=== PATIENT | male | born 1925 | race Caucasian/White ===

== ENCOUNTER 2016-10-19 14:00 | Inpatient (IN) | payer MEDICARE ==
[~2016-10-19] VITALS: Ht 175.3 cm; Wt 44.5 kg
[2016-10-19] MEDS ORDERED: SODIUM CHLORIDE FLUSH 10ML SYR IVF ONE (14:30)
[2016-10-19] MEDS ORDERED: SODIUM CHLORIDE 0.9% 1,000ML IVBOLUS ONE (14:30)
[2016-10-19] MEDS ORDERED: PLEASE ENTER ALLERGIES MC SCH ×2 (14:30)
[2016-10-19] MEDS ORDERED: ASPI-496 PO (14:39)
[2016-10-19] MEDS ORDERED: HYDROmorphone 1 MG/ML, 1ML ONE ×2 (15:45→15:47)
[2016-10-19 15:50] LABS: ASPARTATE AMINO TRANSFERASE 16 U/L (15-37); BLOOD UREA NITROGEN 15 mg/dL (7-18)
[2016-10-19] MEDS ORDERED: HYDROmorphone 1 MG/ML, 1ML IVPush PRN (16:00)
[2016-10-19] MEDS ORDERED: POLYETHYLENE GLYCOL 17 GM PACKET PO PRN (17:00)
[2016-10-19] MEDS ORDERED: ONDANSETRON 2MG/ML, 2ML IVPush PRN (17:00)
[2016-10-19] MEDS ORDERED: DOCUSATE 100 MG CAPSULE PO PRN (17:00)
[2016-10-19] MEDS ORDERED: BISACODYL 10 MG SUPP PR PRN (17:00)
[2016-10-19 19:00] VITALS: BP 103/55
[2016-10-19] MEDS: SODIUM CHLORIDE 0.9% 1,000 ML IV SCH (21:02)
[2016-10-19] MEDS: MEROPENEM 1 GM in SODIUM CHLORIDE 0.9% 50 ML IV SCH (21:03)
[2016-10-19] MEDS: MORPHINE SULFATE 4 MG/ML, 1ML IVPush PRN (21:03)
[2016-10-20 00:18] VITALS: BP 156/77
[2016-10-20 03:34] LABS: BLOOD UREA NITROGEN 18 mg/dL (7-18); TOTAL IRON BINDING CAPACITY 350 mcg/dL (250-450)
[2016-10-20] MEDS: SODIUM CHLORIDE 0.9% 1,000 ML IV SCH ×2 (05:30→15:30)
[2016-10-20 07:51] VITALS: BP 122/70
[2016-10-20] MEDS: MEROPENEM 1 GM in SODIUM CHLORIDE 0.9% 50 ML IV SCH ×2 (09:28→20:44)
[2016-10-20 20:25] VITALS: BP 117/60
[2016-10-20] MEDS: MORPHINE SULFATE 4 MG/ML, 1ML IVPush PRN (20:46)
[2016-10-21 02:47] VITALS: BP 125/67
[2016-10-21] MEDS: SODIUM CHLORIDE 0.9% 1,000 ML IV SCH ×2 (03:00→13:00)
[2016-10-21 05:21] LABS: BLOOD UREA NITROGEN 13 mg/dL (7-18)
[2016-10-21 08:14] VITALS: BP 141/73
[2016-10-21] MEDS: MORPHINE SULFATE 4 MG/ML, 1ML IVPush PRN (09:22)
[2016-10-21] MEDS: MEROPENEM 1 GM in SODIUM CHLORIDE 0.9% 50 ML IV SCH ×2 (09:40→21:43)
[2016-10-21 18:30] VITALS: BP 121/65
[2016-10-21 19:18] VITALS: BP 126/68
[2016-10-21] MEDS: D5%-0.45% NACL 1,000 ML IV SCH (21:43)
[2016-10-22 03:42] VITALS: BP 120/71
[2016-10-22 05:00] LABS: BLOOD UREA NITROGEN 12 mg/dL (7-18)
[2016-10-22 07:51] VITALS: BP 124/78
[2016-10-22] MEDS: MEROPENEM 1 GM in SODIUM CHLORIDE 0.9% 50 ML IV SCH (12:24)
[2016-10-22] MEDS: D5%-0.45% NACL 1,000 ML IV SCH (12:24)
[2016-10-22] MEDS: IRON SUCROSE COMPLEX 100MG/5ML IV SCH (12:25)
[2016-10-22 15:42] VITALS: BP 91/46
[2016-10-22 19:15] VITALS: BP 92/52
[2016-10-22] MEDS: MEROPENEM 1 GM in SODIUM CHLORIDE 0.9% 100 ML IV SCH (20:50)
[2016-10-23 01:42] VITALS: BP 101/56
[2016-10-23] MEDS: D5%-0.45% NACL 1,000 ML IV SCH ×2 (03:30→17:14)
[2016-10-23 07:45] VITALS: BP 109/65
[2016-10-23] MEDS: IRON SUCROSE COMPLEX 100MG/5ML IV SCH (08:48)
[2016-10-23] MEDS: MEROPENEM 1 GM in SODIUM CHLORIDE 0.9% 100 ML IV SCH ×2 (08:48→20:03)
[2016-10-23] MEDS: MORPHINE SULFATE 4 MG/ML, 1ML IVPush PRN ×2 (09:09→20:03)
[2016-10-23 13:17] VITALS: BP 103/61
[2016-10-23 14:00] VITALS: BP 136/80
[2016-10-23 20:16] VITALS: BP 93/50
[2016-10-24 01:40] VITALS: BP 123/65
[2016-10-24 06:28] LABS: BLOOD UREA NITROGEN 19 mg/dL (7-18)
[2016-10-24 07:39] VITALS: BP 133/67
[2016-10-24] MEDS: IRON SUCROSE COMPLEX 100MG/5ML IV SCH (08:25)
[2016-10-24] MEDS: MORPHINE SULFATE 4 MG/ML, 1ML IVPush PRN ×2 (08:25→23:36)
[2016-10-24] MEDS: D5%-0.45% NACL 1,000 ML IV SCH ×2 (08:26→21:59)
[2016-10-24] MEDS: MEROPENEM 1 GM in SODIUM CHLORIDE 0.9% 100 ML IV SCH ×2 (09:12→22:03)
[2016-10-24 14:00] VITALS: BP 138/73
[2016-10-24 20:30] VITALS: BP 106/56
[2016-10-25 03:04] VITALS: BP 131/68
[2016-10-25 08:11] VITALS: BP 107/58
[2016-10-25] MEDS: IRON SUCROSE COMPLEX 100MG/5ML IV SCH (08:51)
[2016-10-25] MEDS: MEROPENEM 1 GM in SODIUM CHLORIDE 0.9% 100 ML IV SCH ×2 (08:51→21:01)
[2016-10-25] MEDS: D5%-0.45% NACL 1,000 ML IV SCH (10:20)
[2016-10-25 13:50] VITALS: BP 111/67
[2016-10-25 13:57] VITALS: BP 126/64
[2016-10-25 20:35] VITALS: BP 104/53
[2016-10-26] MEDS: D5%-0.45% NACL 1,000 ML IV SCH (00:38)
[2016-10-26 02:00] VITALS: BP 141/71
[2016-10-26 06:10] VITALS: BP 134/64
[2016-10-26 07:47] VITALS: BP 113/62
[2016-10-26] MEDS: IRON SUCROSE COMPLEX 100MG/5ML IV SCH (10:24)
[2016-10-26] MEDS: MEROPENEM 1 GM in SODIUM CHLORIDE 0.9% 100 ML IV SCH ×2 (10:31→21:47)
[2016-10-26] MEDS: OXYcodone IR 5MG TABLET PO SCH ×2 (12:39→21:47)
[2016-10-26 14:42] VITALS: BP 92/47
[2016-10-26 19:50] VITALS: BP 105/57
[2016-10-27 02:05] VITALS: BP 135/62
[2016-10-27] MEDS: D5%-0.45% NACL 1,000 ML IV SCH (03:23)
[2016-10-27] MEDS: OXYcodone IR 5MG TABLET PO SCH ×2 (08:20→21:00)
[2016-10-27] MEDS: MEROPENEM 1 GM in SODIUM CHLORIDE 0.9% 100 ML IV SCH ×2 (10:40→21:10)
[2016-10-27 12:31] VITALS: BP 116/65
[2016-10-27 14:01] VITALS: BP 119/64
[2016-10-27] MEDS: HEPARIN 5,000 UNITS/ML, 1ML SQ SCH ×3 (14:30→21:09)
[2016-10-27] MEDS: MORPHINE SULFATE 4 MG/ML, 1ML IVPush PRN (15:24)
[2016-10-27 19:09] VITALS: BP 120/65
[2016-10-27] MEDS: ACETAMINOPHEN 325 MG TABLET PO PRN (19:12)
[2016-10-28 01:42] VITALS: BP 134/69
[2016-10-28] MEDS: HEPARIN 5,000 UNITS/ML, 1ML SQ SCH ×2 (04:00→22:30)
[2016-10-28 04:59] LABS: BLOOD UREA NITROGEN 15 mg/dL (7-18)
[2016-10-29] MEDS: HEPARIN 5,000 UNITS/ML, 1ML SQ SCH ×3 (06:30→21:58)
[2016-10-29] MEDS: OXYcodone IR 5MG TABLET PO SCH ×3 (09:00→22:06)
[2016-10-29] MEDS: MEROPENEM 1 GM in SODIUM CHLORIDE 0.9% 100 ML IV SCH ×3 (10:00→22:06)
[2016-10-29 15:21] VITALS: BP 123/65
[2016-10-29 19:14] VITALS: BP 127/72
[2016-10-30 01:50] VITALS: BP 134/76
[2016-10-30] MEDS: HEPARIN 5,000 UNITS/ML, 1ML SQ SCH ×3 (06:26→21:53)
[2016-10-30 08:45] VITALS: BP 99/54
[2016-10-30] MEDS: OXYcodone IR 5MG TABLET PO SCH ×2 (09:00→22:28)
[2016-10-30 09:46] LABS: ASPARTATE AMINO TRANSFERASE 19 U/L (15-37); BLOOD UREA NITROGEN 21 mg/dL (7-18)
[2016-10-30 12:45] VITALS: BP 99/60
[2016-10-30] MEDS: MEROPENEM 1 GM in SODIUM CHLORIDE 0.9% 100 ML IV SCH ×2 (14:53→22:29)
[2016-10-30] MEDS: MORPHINE SULFATE 4 MG/ML, 1ML IVPush PRN (22:28)
[2016-10-31 03:01] VITALS: BP 105/59
[2016-10-31] MEDS: HEPARIN 5,000 UNITS/ML, 1ML SQ SCH ×3 (05:42→21:36)
[2016-10-31 09:00] VITALS: BP 100/59
[2016-10-31] MEDS: OXYcodone IR 5MG TABLET PO SCH ×2 (09:02→21:36)
[2016-10-31] MEDS: MEROPENEM 1 GM in SODIUM CHLORIDE 0.9% 100 ML IV SCH ×2 (12:26→21:36)
[2016-10-31 13:40] VITALS: BP 97/56
[2016-10-31 20:06] VITALS: BP 141/64
[2016-11-01] MEDS: MORPHINE SULFATE 4 MG/ML, 1ML IVPush PRN ×2 (00:12→04:01)
[2016-11-01 01:27] VITALS: BP 99/60
[2016-11-01 07:25] VITALS: BP 99/51
[2016-11-01] MEDS: HEPARIN 5,000 UNITS/ML, 1ML SQ SCH ×4 (08:03→22:52)
[2016-11-01] MEDS: OXYcodone IR 5MG TABLET PO SCH ×2 (08:03→20:22)
[2016-11-01] MEDS: MEROPENEM 1 GM in SODIUM CHLORIDE 0.9% 100 ML IV SCH ×2 (09:47→22:45)
[2016-11-01 12:25] VITALS: BP 99/62
[2016-11-01 20:28] VITALS: BP 119/52
[2016-11-02 01:54] VITALS: BP 112/58
[2016-11-02 07:02] VITALS: BP 100/53
[2016-11-02] MEDS: MEROPENEM 1 GM in SODIUM CHLORIDE 0.9% 100 ML IV SCH ×2 (09:21→20:40)
[2016-11-02] MEDS: OXYcodone IR 5MG TABLET PO SCH ×2 (09:21→20:40)
[2016-11-02 13:45] VITALS: BP 117/65
[2016-11-02] MEDS: HEPARIN 5,000 UNITS/ML, 1ML SQ SCH ×2 (17:08→20:41)
[2016-11-02 18:57] VITALS: BP 96/54
[2016-11-02] MEDS ORDERED: BISACODYL 10 MG SUPP PR PRN (21:30)
[2016-11-02] MEDS ORDERED: POLYETHYLENE GLYCOL 17 GM PACKET PO PRN (21:30)
[2016-11-02] MEDS ORDERED: ONDANSETRON 2MG/ML, 2ML IVPush PRN (21:30)
[2016-11-03 01:14] VITALS: BP 107/59
[2016-11-03] MEDS: HEPARIN 5,000 UNITS/ML, 1ML SQ SCH ×3 (05:51→21:10)
[2016-11-03 07:36] VITALS: BP 109/58
[2016-11-03] MEDS: OXYcodone IR 5MG TABLET PO SCH ×2 (08:41→21:00)
[2016-11-03] MEDS: MEROPENEM 1 GM in SODIUM CHLORIDE 0.9% 100 ML IV SCH (08:41)
[2016-11-03 13:37] VITALS: BP 105/53
[2016-11-03 19:20] VITALS: BP 111/61
[2016-11-03] MEDS: AMOXICILLIN/CLAV 875-125MG TABLET PO SCH (21:00)
[2016-11-04 01:22] VITALS: BP 116/55
[2016-11-04] MEDS: HEPARIN 5,000 UNITS/ML, 1ML SQ SCH ×3 (05:27→22:30)
[2016-11-04 06:09] LABS: BLOOD UREA NITROGEN 21 mg/dL (7-18)
[2016-11-04 06:56] VITALS: BP_SYST 101; BP_SYST 96; BP_DIAS 50; BP_DIAS 55
[2016-11-04] MEDS: AMOXICILLIN/CLAV 875-125MG TABLET PO SCH ×2 (08:55→20:53)
[2016-11-04] MEDS: OXYcodone IR 5MG TABLET PO SCH ×2 (08:55→20:55)
[2016-11-04] MEDS ORDERED: OXYC5TAB3 PO (13:17)
[2016-11-04] MEDS ORDERED: AMOX1TAB12 PO (13:17)
[2016-11-04 13:39] VITALS: BP 107/56
[2016-11-04 20:00] VITALS: BP 112/72
[2016-11-04 20:27] VITALS: BP 106/60
[2016-11-05 01:39] VITALS: BP 111/62
[2016-11-05] MEDS: HEPARIN 5,000 UNITS/ML, 1ML SQ SCH ×3 (06:30→22:30)
[2016-11-05] MEDS: OXYcodone IR 5MG TABLET PO SCH ×4 (09:00→23:23)
[2016-11-05] MEDS: AMOXICILLIN/CLAV 875-125MG TABLET PO SCH ×3 (09:00→20:05)
[2016-11-05 09:30] VITALS: BP 100/64
[2016-11-05 13:19] VITALS: BP 106/56
[2016-11-05 20:04] VITALS: BP 105/60
[2016-11-06 02:18] VITALS: BP 108/60
[2016-11-06] MEDS: HEPARIN 5,000 UNITS/ML, 1ML SQ SCH ×4 (06:30→21:44)
[2016-11-06 08:17] VITALS: BP 137/71
[2016-11-06] MEDS: AMOXICILLIN/CLAV 875-125MG TABLET PO SCH ×2 (10:54→21:34)
[2016-11-06 13:35] VITALS: BP 121/66
[2016-11-06 19:45] VITALS: BP 93/54
[2016-11-06] MEDS: OXYcodone IR 5MG TABLET PO SCH (21:34)
[2016-11-07 01:47] VITALS: BP 100/56
[2016-11-07] MEDS: HEPARIN 5,000 UNITS/ML, 1ML SQ SCH ×3 (05:57→21:25)
[2016-11-07 06:47] VITALS: BP 97/55
[2016-11-07] MEDS: OXYcodone IR 5MG TABLET PO SCH ×2 (09:00→19:52)
[2016-11-07] MEDS: AMOXICILLIN/CLAV 875-125MG TABLET PO SCH ×2 (10:18→20:33)
[2016-11-07 13:55] VITALS: BP 125/74
[2016-11-07 20:23] VITALS: BP 107/57
[2016-11-08 02:50] VITALS: BP 120/61
[2016-11-08] MEDS: HEPARIN 5,000 UNITS/ML, 1ML SQ SCH ×3 (05:35→21:57)
[2016-11-08 07:44] VITALS: BP 123/67
[2016-11-08] MEDS: AMOXICILLIN/CLAV 875-125MG TABLET PO SCH ×2 (10:15→20:28)
[2016-11-08] MEDS: OXYcodone IR 5MG TABLET PO SCH ×2 (10:15→20:28)
[2016-11-08 13:29] VITALS: BP 102/56
[2016-11-08 19:32] VITALS: BP 107/58
[2016-11-09 01:51] VITALS: BP 130/69
[2016-11-09] MEDS: HEPARIN 5,000 UNITS/ML, 1ML SQ SCH ×3 (05:43→22:26)
[2016-11-09 08:00] VITALS: BP 133/73
[2016-11-09] MEDS: AMOXICILLIN/CLAV 875-125MG TABLET PO SCH ×2 (11:13→22:44)
[2016-11-09] MEDS: OXYcodone IR 5MG TABLET PO SCH ×2 (11:13→22:44)
[2016-11-09 14:35] VITALS: BP 111/58
[2016-11-09 20:59] VITALS: BP 130/82
[2016-11-10 02:47] VITALS: BP 110/65
[2016-11-10 05:32] LABS: BLOOD UREA NITROGEN 18 mg/dL (7-18)
[2016-11-10] MEDS: HEPARIN 5,000 UNITS/ML, 1ML SQ SCH ×3 (06:24→22:30)
[2016-11-10 06:36] VITALS: BP 96/55
[2016-11-10 07:11] VITALS: BP 92/53
[2016-11-10] MEDS: OXYcodone IR 5MG TABLET PO SCH ×2 (10:23→20:56)
[2016-11-10] MEDS: AMOXICILLIN/CLAV 875-125MG TABLET PO SCH ×2 (10:23→20:56)
[2016-11-10 15:15] VITALS: BP 109/61
[2016-11-10 19:47] VITALS: BP 110/63
[2016-11-11 01:28] VITALS: BP 123/68
[2016-11-11] MEDS: HEPARIN 5,000 UNITS/ML, 1ML SQ SCH ×3 (05:31→22:30)
[2016-11-11 06:36] VITALS: BP 95/53
[2016-11-11] MEDS: OXYcodone IR 5MG TABLET PO SCH ×2 (08:44→20:13)
[2016-11-11] MEDS: AMOXICILLIN/CLAV 875-125MG TABLET PO SCH ×2 (08:44→20:13)
[2016-11-11 13:35] VITALS: BP 121/66
[2016-11-11 19:42] VITALS: BP 91/57
[2016-11-12] MEDS: HEPARIN 5,000 UNITS/ML, 1ML SQ SCH ×3 (06:09→22:30)
[2016-11-12 08:35] VITALS: BP 94/51
[2016-11-12] MEDS: AMOXICILLIN/CLAV 875-125MG TABLET PO SCH ×2 (08:53→22:08)
[2016-11-12] MEDS: OXYcodone IR 5MG TABLET PO SCH ×2 (08:53→22:08)
[2016-11-12 14:40] VITALS: BP 119/62
[2016-11-12] MEDS: LACTOBACILLUS 1GM/ PACKET PO SCH ×2 (14:51→22:08)
[2016-11-12] MEDS: ACETAMINOPHEN 325 MG TABLET PO PRN (15:08)
[2016-11-12 19:54] VITALS: BP 111/58
[2016-11-13 01:39] VITALS: BP 107/53
[2016-11-13 07:31] VITALS: BP 97/55
[2016-11-13] MEDS: AMOXICILLIN/CLAV 875-125MG TABLET PO SCH ×2 (08:16→20:18)
[2016-11-13] MEDS: LACTOBACILLUS 1GM/ PACKET PO SCH ×3 (08:16→20:18)
[2016-11-13] MEDS: OXYcodone IR 5MG TABLET PO SCH ×2 (08:18→20:18)
[2016-11-13] MEDS: HEPARIN 5,000 UNITS/ML, 1ML SQ SCH ×3 (08:20→22:30)
[2016-11-13 13:46] VITALS: BP 95/51
[2016-11-13 19:12] VITALS: BP 102/56
[2016-11-14 02:50] VITALS: BP 135/73
[2016-11-14] MEDS: HEPARIN 5,000 UNITS/ML, 1ML SQ SCH ×3 (06:30→22:30)
[2016-11-14] MEDS: AMOXICILLIN/CLAV 875-125MG TABLET PO SCH ×2 (08:54→21:49)
[2016-11-14] MEDS: OXYcodone IR 5MG TABLET PO SCH ×2 (08:54→21:50)
[2016-11-14] MEDS: LACTOBACILLUS 1GM/ PACKET PO SCH ×3 (08:54→21:49)
[2016-11-14 09:00] VITALS: BP 103/58
[2016-11-14 13:23] VITALS: BP 95/51
[2016-11-14 20:49] VITALS: BP 106/53
[2016-11-15 02:51] VITALS: BP 107/64
[2016-11-15] MEDS: HEPARIN 5,000 UNITS/ML, 1ML SQ SCH ×3 (06:01→22:30)
[2016-11-15 06:43] VITALS: BP 111/61
[2016-11-15] MEDS: OXYcodone IR 5MG TABLET PO SCH ×2 (08:57→21:40)
[2016-11-15] MEDS: LACTOBACILLUS 1GM/ PACKET PO SCH ×3 (08:57→21:40)
[2016-11-15] MEDS: AMOXICILLIN/CLAV 875-125MG TABLET PO SCH ×2 (08:57→21:40)
[2016-11-15 15:44] VITALS: BP 105/88
[2016-11-15 22:13] VITALS: BP 120/70
[2016-11-16 03:09] VITALS: BP 102/60
[2016-11-16 05:09] LABS: BLOOD UREA NITROGEN 21 mg/dL (7-18)
[2016-11-16] MEDS: HEPARIN 5,000 UNITS/ML, 1ML SQ SCH ×3 (06:33→20:30)
[2016-11-16] MEDS: LACTOBACILLUS 1GM/ PACKET PO SCH ×3 (09:00→20:29)
[2016-11-16 10:07] VITALS: BP 105/54
[2016-11-16] MEDS: OXYcodone IR 5MG TABLET PO SCH ×2 (10:15→20:29)
[2016-11-16] MEDS: AMOXICILLIN/CLAV 875-125MG TABLET PO SCH ×2 (10:15→20:29)
[2016-11-16 12:58] VITALS: BP 133/68
[2016-11-16 20:28] VITALS: BP 121/85
[2016-11-16 21:44] VITALS: BP 145/71
[2016-11-16] MEDS ORDERED: ONDANSETRON ODT 4 MG ONE (21:57)
[2016-11-17 03:31] VITALS: BP 116/65
[2016-11-17] MEDS: HEPARIN 5,000 UNITS/ML, 1ML SQ SCH ×3 (05:43→22:30)
[2016-11-17 08:56] VITALS: BP 110/69
[2016-11-17] MEDS: AMOXICILLIN/CLAV 875-125MG TABLET PO SCH ×2 (09:00→21:00)
[2016-11-17] MEDS: LACTOBACILLUS 1GM/ PACKET PO SCH ×3 (09:00→21:00)
[2016-11-17] MEDS: OXYcodone IR 5MG TABLET PO SCH ×2 (09:00→21:00)
[2016-11-17 14:13] VITALS: BP 163/83
[2016-11-17 20:10] VITALS: BP 145/69
[2016-11-18 02:48] VITALS: BP 146/74
[2016-11-18] MEDS: HEPARIN 5,000 UNITS/ML, 1ML SQ SCH ×3 (04:34→22:32)
[2016-11-18 08:25] VITALS: BP 122/58
[2016-11-18] MEDS: LACTOBACILLUS 1GM/ PACKET PO SCH ×3 (09:00→19:44)
[2016-11-18] MEDS: AMOXICILLIN/CLAV 875-125MG TABLET PO SCH ×2 (09:00→19:44)
[2016-11-18] MEDS: OXYcodone IR 5MG TABLET PO SCH ×2 (09:00→19:44)
[2016-11-18 14:06] VITALS: BP 128/66
[2016-11-18 20:23] VITALS: BP 120/67
[2016-11-19 01:23] VITALS: BP 129/70
[2016-11-19] MEDS: HEPARIN 5,000 UNITS/ML, 1ML SQ SCH ×3 (03:04→21:34)
[2016-11-19] MEDS: OXYcodone IR 5MG TABLET PO SCH ×2 (08:51→20:02)
[2016-11-19] MEDS: AMOXICILLIN/CLAV 875-125MG TABLET PO SCH ×2 (08:51→20:01)
[2016-11-19] MEDS: LACTOBACILLUS 1GM/ PACKET PO SCH ×3 (08:51→20:02)
[2016-11-19 13:44] VITALS: BP 124/66
[2016-11-19 19:47] VITALS: BP 137/66
[2016-11-20 01:44] VITALS: BP 130/65
[2016-11-20] MEDS: HEPARIN 5,000 UNITS/ML, 1ML SQ SCH ×3 (05:52→22:11)
[2016-11-20 07:34] VITALS: BP 124/62
[2016-11-20] MEDS: AMOXICILLIN/CLAV 875-125MG TABLET PO SCH ×2 (08:34→20:26)
[2016-11-20] MEDS: LACTOBACILLUS 1GM/ PACKET PO SCH ×3 (08:34→20:27)
[2016-11-20] MEDS: OXYcodone IR 5MG TABLET PO SCH ×2 (08:35→20:26)
[2016-11-20 13:46] VITALS: BP 108/64
[2016-11-20 20:08] VITALS: BP 127/66
[2016-11-21 01:11] VITALS: BP 121/66
[2016-11-21] MEDS: HEPARIN 5,000 UNITS/ML, 1ML SQ SCH ×3 (05:26→21:21)
[2016-11-21 08:02] VITALS: BP 130/66
[2016-11-21] MEDS: OXYcodone IR 5MG TABLET PO SCH ×2 (08:26→19:42)
[2016-11-21] MEDS: LACTOBACILLUS 1GM/ PACKET PO SCH ×3 (08:26→19:42)
[2016-11-21] MEDS: AMOXICILLIN/CLAV 875-125MG TABLET PO SCH ×2 (08:26→19:41)
[2016-11-21 12:50] VITALS: BP 132/75
[2016-11-21 19:55] VITALS: BP 106/60
[2016-11-22 01:50] VITALS: BP 116/69
[2016-11-22] MEDS: HEPARIN 5,000 UNITS/ML, 1ML SQ SCH ×3 (05:39→20:33)
[2016-11-22 07:53] VITALS: BP 141/79
[2016-11-22] MEDS: LACTOBACILLUS 1GM/ PACKET PO SCH ×4 (09:00→20:33)
[2016-11-22] MEDS: AMOXICILLIN/CLAV 875-125MG TABLET PO SCH ×3 (09:00→20:33)
[2016-11-22] MEDS: OXYcodone IR 5MG TABLET PO SCH ×3 (11:55→20:32)
[2016-11-22 12:53] VITALS: BP 106/56
[2016-11-22 20:07] VITALS: BP 127/68
[2016-11-23 01:16] VITALS: BP 119/66
[2016-11-23] MEDS: HEPARIN 5,000 UNITS/ML, 1ML SQ SCH ×3 (05:21→22:30)
[2016-11-23 07:16] VITALS: BP 133/72
[2016-11-23] MEDS: AMOXICILLIN/CLAV 875-125MG TABLET PO SCH ×2 (09:00→21:00)
[2016-11-23] MEDS: LACTOBACILLUS 1GM/ PACKET PO SCH ×3 (09:00→21:00)
[2016-11-23] MEDS: OXYcodone IR 5MG TABLET PO SCH ×2 (09:00→21:00)
[2016-11-23 14:29] VITALS: BP 120/66
[2016-11-23 18:41] VITALS: BP 147/74
[2016-11-24 00:45] VITALS: BP 127/68
[2016-11-24 04:44] LABS: BLOOD UREA NITROGEN 24 mg/dL (7-18)
[2016-11-24 04:47] LABS: ASPARTATE AMINO TRANSFERASE 15 U/L (15-37)
[2016-11-24] MEDS: HEPARIN 5,000 UNITS/ML, 1ML SQ SCH ×3 (05:10→22:30)
[2016-11-24] MEDS: OXYcodone IR 5MG TABLET PO SCH ×2 (09:00→21:00)
[2016-11-24] MEDS: AMOXICILLIN/CLAV 875-125MG TABLET PO SCH ×2 (09:00→21:00)
[2016-11-24] MEDS: LACTOBACILLUS 1GM/ PACKET PO SCH ×3 (09:00→21:00)
[2016-11-24 09:02] VITALS: BP 118/67
[2016-11-24 13:47] VITALS: BP 126/64
[2016-11-24 20:09] VITALS: BP 113/64
[2016-11-25 02:01] VITALS: BP 129/71
[2016-11-25 05:01] LABS: BLOOD UREA NITROGEN 21 mg/dL (7-18)
[2016-11-25] MEDS: HEPARIN 5,000 UNITS/ML, 1ML SQ SCH ×3 (06:30→22:30)
[2016-11-25 07:12] VITALS: BP 131/79
[2016-11-25] MEDS: AMOXICILLIN/CLAV 875-125MG TABLET PO SCH ×2 (09:00→19:55)
[2016-11-25] MEDS: OXYcodone IR 5MG TABLET PO SCH ×2 (09:00→19:55)
[2016-11-25] MEDS: LACTOBACILLUS 1GM/ PACKET PO SCH ×3 (09:00→19:55)
[2016-11-25 15:56] VITALS: BP 123/63
[2016-11-25 18:58] VITALS: BP 124/69
[2016-11-26 00:59] VITALS: BP 116/69
[2016-11-26] MEDS: HEPARIN 5,000 UNITS/ML, 1ML SQ SCH ×3 (05:49→21:37)
[2016-11-26 07:01] VITALS: BP 120/65
[2016-11-26] MEDS: AMOXICILLIN/CLAV 875-125MG TABLET PO SCH ×3 (08:24→20:08)
[2016-11-26] MEDS: OXYcodone IR 5MG TABLET PO SCH ×2 (08:24→19:58)
[2016-11-26] MEDS: LACTOBACILLUS 1GM/ PACKET PO SCH ×3 (08:24→19:58)
[2016-11-26 13:37] VITALS: BP 117/72
[2016-11-26 20:04] VITALS: BP 108/64
[2016-11-27 01:10] VITALS: BP 101/60
[2016-11-27] MEDS: HEPARIN 5,000 UNITS/ML, 1ML SQ SCH ×3 (05:24→19:37)
[2016-11-27 07:41] VITALS: BP 119/65
[2016-11-27] MEDS: OXYcodone IR 5MG TABLET PO SCH ×3 (09:00→19:36)
[2016-11-27] MEDS: LACTOBACILLUS 1GM/ PACKET PO SCH ×4 (09:00→19:36)
[2016-11-27] MEDS: AMOXICILLIN/CLAV 875-125MG TABLET PO SCH ×2 (10:12→19:36)
[2016-11-27 13:38] VITALS: BP 110/74
[2016-11-27 19:31] VITALS: BP 103/52
[2016-11-28 04:20] VITALS: BP 127/69
[2016-11-28 08:32] VITALS: BP 110/65
[2016-11-28] MEDS: OXYcodone IR 5MG TABLET PO SCH ×2 (10:17→21:00)
[2016-11-28] MEDS: AMOXICILLIN/CLAV 875-125MG TABLET PO SCH ×2 (10:17→21:00)
[2016-11-28] MEDS: LACTOBACILLUS 1GM/ PACKET PO SCH ×3 (10:17→21:00)
[2016-11-28] MEDS: HEPARIN 5,000 UNITS/ML, 1ML SQ SCH ×2 (14:30→22:20)
[2016-11-28 14:40] VITALS: BP 117/67
[2016-11-28 20:51] VITALS: BP 116/61
[2016-11-29 01:38] VITALS: BP 111/57
[2016-11-29] MEDS: HEPARIN 5,000 UNITS/ML, 1ML SQ SCH ×3 (05:21→22:30)
[2016-11-29 08:30] VITALS: BP 117/59
[2016-11-29] MEDS: LACTOBACILLUS 1GM/ PACKET PO SCH ×3 (09:00→21:00)
[2016-11-29] MEDS: AMOXICILLIN/CLAV 875-125MG TABLET PO SCH ×2 (09:00→21:00)
[2016-11-29] MEDS: OXYcodone IR 5MG TABLET PO SCH ×2 (09:00→21:00)
[2016-11-29 14:30] VITALS: BP 127/78
[2016-11-29 18:45] VITALS: BP 119/69
[2016-11-30 02:36] VITALS: BP 127/56
[2016-11-30 07:10] VITALS: BP 149/72
[2016-11-30 08:04] VITALS: BP 146/80
[2016-11-30] MEDS: AMOXICILLIN/CLAV 875-125MG TABLET PO SCH ×2 (08:20→21:00)
[2016-11-30] MEDS: LACTOBACILLUS 1GM/ PACKET PO SCH ×3 (08:22→21:00)
[2016-11-30] MEDS: OXYcodone IR 5MG TABLET PO SCH ×3 (09:12→21:00)
[2016-11-30 12:49] VITALS: BP 115/68
[2016-11-30] MEDS: HEPARIN 5,000 UNITS/ML, 1ML SQ SCH ×3 (14:30→22:30)
[2016-11-30 20:56] VITALS: BP 98/52
[2016-11-30] MEDS ORDERED: OXYcodone IR 5MG TABLET PO SCH (21:00)
[2016-12-01 02:55] VITALS: BP 111/57
[2016-12-01 05:34] LABS: BLOOD UREA NITROGEN 20 mg/dL (7-18)
[2016-12-01] MEDS: AMOXICILLIN/CLAV 875-125MG TABLET PO SCH ×3 (05:53→21:00)
[2016-12-01] MEDS: HEPARIN 5,000 UNITS/ML, 1ML SQ SCH ×3 (05:53→22:30)
[2016-12-01] MEDS: LACTOBACILLUS 1GM/ PACKET PO SCH ×3 (09:00→21:00)
[2016-12-01] MEDS: OXYcodone IR 5MG TABLET PO SCH ×2 (09:00→21:00)
[2016-12-01 13:59] VITALS: BP 127/69
[2016-12-01 19:29] VITALS: BP 107/65
[2016-12-01] MEDS ORDERED: ONDANSETRON 2MG/ML, 2ML IVPush PRN (19:30)
[2016-12-01] MEDS ORDERED: BISACODYL 10 MG SUPP PR PRN (19:30)
[2016-12-01] MEDS ORDERED: DOCUSATE 100 MG CAPSULE PO PRN (19:30)
[2016-12-01] MEDS ORDERED: ACETAMINOPHEN 325 MG TABLET PO PRN (19:30)
[2016-12-01 23:04] VITALS: BP 119/76
[2016-12-02 03:02] VITALS: BP 111/60
[2016-12-02] MEDS: HEPARIN 5,000 UNITS/ML, 1ML SQ SCH ×3 (06:16→19:45)
[2016-12-02 07:40] VITALS: BP 104/60
[2016-12-02] MEDS: AMOXICILLIN/CLAV 875-125MG TABLET PO SCH ×3 (11:44→21:40)
[2016-12-02] MEDS: LACTOBACILLUS 1GM/ PACKET PO SCH ×3 (11:45→21:00)
[2016-12-02] MEDS: OXYcodone IR 5MG TABLET PO SCH ×2 (11:47→21:40)
[2016-12-02 14:34] VITALS: BP 105/61
[2016-12-02 18:48] VITALS: BP 104/61
[2016-12-03 01:05] VITALS: BP 99/59
[2016-12-03] MEDS: HEPARIN 5,000 UNITS/ML, 1ML SQ SCH ×3 (03:45→19:45)
[2016-12-03 07:58] VITALS: BP 121/66
[2016-12-03] MEDS: LACTOBACILLUS 1GM/ PACKET PO SCH ×3 (10:09→19:58)
[2016-12-03] MEDS: AMOXICILLIN/CLAV 875-125MG TABLET PO SCH ×2 (10:09→19:57)
[2016-12-03] MEDS: OXYcodone IR 5MG TABLET PO SCH ×2 (10:13→19:56)
[2016-12-03 15:02] VITALS: BP 117/61
[2016-12-03 19:32] VITALS: BP 108/60
[2016-12-04 01:27] VITALS: BP 110/64
[2016-12-04] MEDS: HEPARIN 5,000 UNITS/ML, 1ML SQ SCH (03:45)
[2016-12-04 06:38] VITALS: BP 116/68
== END 2016-12-04 07:15 | disposition home or self-care (01) | DRG 871 ==
LOC: ED 16:17 → SUATTDRO 16:21 → EDIP 16:36 → 3NW 18:11
PROVIDERS: ATTEND Family Medicine
DX: A41.9 Sepsis, unspecified organism (principal); E43 Unspecified severe protein-calorie malnutrition; E87.1 Hypo-osmolality and hyponatremia; R64 Cachexia; Z68.1 Body mass index [BMI] 19.9 or less, adult; F17.293 Nicotine dependence, other tobacco product, with withdrawal; H93.8X2 Other specified disorders of left ear; D50.9 Iron deficiency anemia, unspecified; D47.3 Essential (hemorrhagic) thrombocythemia; D75.89 Other specified diseases of blood and blood-forming organs; F03.90 Unspecified dementia, unspecified severity, without behavioral disturbance, psychotic disturbance, mood disturbance, and anxiety; F09 Unspecified mental disorder due to known physiological condition; F22 Delusional disorders; H70.92 Unspecified mastoiditis, left ear; H91.90 Unspecified hearing loss, unspecified ear; Z51.5 Encounter for palliative care; Z66 Do not resuscitate; Z90.79 Acquired absence of other genital organ(s); C44.209 Unspecified malignant neoplasm of skin of left ear and external auricular canal
CPT/HCPCS: 36415; 70450; 70486; 71010; 72125; 80048; 80053; 82040; 82728; 82962; 83540; 83550; 83605; 83735; 84100; 84145; 85025; 85610; 87040; 87070; 87205; 96361; 96374; J1170; J1644; J1756; J2185; J2405; 92523-GN; J7030